=== PATIENT | female | born 1950 | race Caucasian/White ===

== ENCOUNTER 2018-01-08 12:53 | Outpatient (CLI) | payer OTHER | END 2018-01-08 13:05 | disposition home or self-care (01) | LOC: SONOGRAMA 12:53 | DX: N60.11 Diffuse cystic mastopathy of right breast (principal); N60.12 Diffuse cystic mastopathy of left breast; N63.13 Unspecified lump in the right breast, lower outer quadrant ==

== ENCOUNTER 2018-04-02 11:31 | Outpatient (CLI) | payer OTHER | END 2018-04-02 11:45 | disposition home or self-care (01) | LOC: SONOGRAMA 11:31 | DX: N61.1 Abscess of the breast and nipple (principal) ==

== ENCOUNTER → 2018-04-09 09:32 | Outpatient (CLI) | payer OTHER | END | disposition home or self-care (01) | LOC: SONOGRAMA 09:32 | DX: N61.1 Abscess of the breast and nipple (principal); N61.0 Mastitis without abscess; N60.01 Solitary cyst of right breast ==

== ENCOUNTER 2018-05-17 13:46 | Outpatient (CLI) | payer OTHER | END 2018-05-17 13:58 | disposition home or self-care (01) | LOC: SONOGRAMA 13:46 | DX: N61.1 Abscess of the breast and nipple (principal); N61.0 Mastitis without abscess ==

== ENCOUNTER 2019-04-04 08:00 | Outpatient (CLI) | payer OTHER | END 2019-04-04 08:04 | disposition home or self-care (01) | LOC: SONOGRAMA 08:00 | DX: N61.1 Abscess of the breast and nipple (principal); N61.0 Mastitis without abscess ==